=== PATIENT | male | born 1995 | race Hispanic/Latino ===

== ENCOUNTER 2017-11-14 16:22 | Emergency (ER) | payer BC ==
--- NOTE | 2017-11-14 17:18 | CT ---
CT BRAIN WITHOUT CONTRAST 11/14/17 HISTORY: Injury. Confusion. COMPARISON: None. FINDINGS: No acute territorial infarct or hemorrhage. No midline shift or mass effect. Ventricular size and ext ra-axial CSF spaces are normal. The calvarium is intact. The paranasal sinuses and mastoids are clear. Globes are normal. Soft tissues are unremarkable. IMPRESSION: No acute intracranial abnormality. POS: [facility]
== END 2017-11-14 17:35 | disposition home or self-care (01) ==
LOC: SCSER 16:22
DX: S16.1XXA Strain of muscle, fascia and tendon at neck level, initial encounter (principal); S09.90XA Unspecified injury of head, initial encounter; V89.2XXA Person injured in unspecified motor-vehicle accident, traffic, initial encounter
CPT/HCPCS: 70450